=== PATIENT | female | born 1970 | race Caucasian/White ===

== ENCOUNTER 2025-03-06 17:34 | Inpatient (IN) | payer OTHER ==
[2025-03-06 18:19] LABS: Absolute Lymphocytes (CBC) 1.4 K/uL (0.7-4.9); Hematocrit 34.8 % (36.0-45.0); Hemoglobin 11.3 g/dL (12.0-15.0); MCH 26.1 pg (27.0-35.0); MCHC 32.4 g/dL (32.0-36.0); MCV 80.7 fL (80-100); MPV 7.8 fL (7.6-11.3); Nucleated RBC Absolute Count 0.0 (0-0); Nucleated Red Blood Cells % 0.0 % (0-0); RBC Red Blood Cell Count 4.32 M/uL (3.86-4.86); White Blood Count 16.40 thou/uL (4.3-10.9)
[2025-03-06 18:28] LABS: PT Prothrombin Time 14.0 SECONDS (10-13.0); PTT, Activated Partial Thromb 32.6 SECONDS (27.2-37.4); Protime INR 1.25
[2025-03-06] MEDS ORDERED: KETOROLAC 30 MG/ML INJ ONE (18:39)
[2025-03-06 18:40] LABS: Sqamous Epithelial None Seen /HPF (None Seen); Urine Crystals Unidentified Moderate /HPF (None Seen); Urine Culture Reflex Order REFLEXED; Urine Microscopic Reflex YN ORDER UMIC; Urine WBC Clump Many /HPF (None Seen)
[2025-03-06] MEDS ORDERED: NA CHLORIDE 0.9% 2,000 ML ONE (18:40)
[2025-03-06] MEDS ORDERED: CEFTRIAXONE 1000 MG/VIAL ONE (18:40)
[2025-03-06 18:41] LABS: ALT/SGPT 19.0 U/L (13-56); AST/SGOT 16.0 U/L (15-37); Albumin 2.6 g/dL (3.4-5.0); Albumin/Globulin Ratio 0.8 (1.1-1.8); Alkaline Phosphatase 81.0 U/L (45-117); Anion Gap 9.2 mEq/L (5.0-15.0); BUN Blood Urea Nitrogen 23.0 mg/dL (7-18); Globulin 3.4 g/dL (2.3-3.5); Glucose Level 87.0 mg/dL (74-106); Potassium 3.2 mEq/L (3.5-5.1)
[2025-03-06] MEDS ORDERED: POTASSIUM CL SA 10 MEQ TAB PO ONE (19:39)
--- NOTE | 2025-03-06 19:46 | RAD REPORT ---
EXAMINATION: CT Abdomen Pelvis W Contrast CLINICAL INDICATION: Female, 54 years old. ABD PAIN TECHNIQUE: CT abdomen and pelvis was performed, after the administration of IV contrast, as per [facility] protocol. Axial, sagittal and coronal reconstructions were obtained. One or more of the following dose reduction techniques were used: Automated exposure control, adjustment of the mA and k V according to patient size, and iterative reconstruction. Unless otherwise specified, incidental findings do not require dedicated imaging follow-up. COMPARISON: No prior exam. FINDINGS: LOWER CHEST: The visualized lung bases are clear. LIVER: Normal in size and contour. No focal lesion. BILIARY SYSTEM: Status post cholecystectomy. SPLEEN: Normal size. No focal lesion. PANCREAS: No mass, ductal dilation, or rom-pancreatic fluid. ADRENALS: Normal; no mass. KIDNEYS: Normal size and contour. Mild bilateral hydroureteronephrosis. Mild perinephric fat strandin g more so on the left. Pericystic fat stranding extends along the distal left ureter, with trace layering fluid along the left more than right paracolic gutters. URINARY BLADDER: Diffuse wall thickening, pericystic fat stranding, and urothelial hyperenhancement. Bladder is decompressed with Lacey catheter in place which somewhat limits evaluation. Subjective focal wall thickening at the level of the protruding tip of the catheter right of midline. GASTROINTESTINAL TRACT: Moderate to marked distal colonic disease is distention and steatorrhea. Shyam ed caliber attenuation of the distal sigmoid to rectum with smooth transition. Mild wall thickening of the rectosigmoid junction and the upper rectum, with mild presacral fat stranding. No evidence of free air, significant intra-abdominal free fluid, bowel obstruction or abscess. APPENDIX: Normal appendix. LYMPH NODES: No lymphadenopathy. MUSCULOSKELETAL: No acute or suspicious osseous abnormality. ADDITIONAL FINDINGS: None. IMPRESSION: Suspected sequelae of acute cystitis, although decompression of the bladder limits evaluation. Fat st randing extends along the left distal periureteric segment, with trace fluid along the left more than right paracolic gutters. Mild hydroureteronephrosis and mild perinephric fat stranding. Findings raise concern for ascending infection/pyelonephritis. Please correlate clinically. Distal colonic gaseous distention with transition to nondistended distal sigmoid and upper rectum, fi ndings which may reflect mild colonic ileus. Mild wall thickening of the rectosigmoid junction and upper rectum with presacral space fat stranding, concerning for proctocolitis.
--- NOTE | 2025-03-06 19:53 | ER ---
Nurse's Notes [facility] Name: Francoise Bonilla Age: 54 yrs Sex: Female : 1970 Arrival Date: 03/06/2025 Time: 17:34 Bed 20 Private MD: Diagnosis: Pyelonephritis acute;Severe sepsis without septic shock;Ileus, unspecified;Proctocolitis Presentation: 03/06 17:40 Chief complaint: EMS states: TONED OUT DUE TO PATIENT NOT FEELING WELL. LONG-TERM cm10 STAFF REPORTS THAT PATIENT HAS HAD "MILKY" URINE IN HER CATHETER AND HAS HAD "MUCOUS" IN HER BM. PT REPORTS THAT SHE FEELS WEAK AND HAS A HEADACHE. EMS REPORTS THAT PT WAS HYPOTENSIVE 76/46 WHEN THEY ARRIVED, BP IMPROVED AFTER FLUIDS. Coronavirus screen: Client denies travel out of the [place] in the last 14 days. Ebola Screen: Patient denies travel to an Ebola-affected area in the 21 days before illness onset. Risk Assessment: Do you want to hurt yourself or someone else? Patient reports no desire to harm self or others. Onset of symptoms was March 06, 2025. Care prior to arrival: Medication(s) given: zofran 4 mg, LR 500mL IV initiated. 20 GA, in the left antecubital area, Glucose check: 96. 17:40 Method Of Arrival: EMS: [facility] 17:40 Acuity: LUIS 3 cm10 17:45 Initial Sepsis Screen: Does the patient meet any 2 criteria? HR > 90 bpm. Does the me1 patient have a suspected source of infection? No. Patient's initial sepsis screen is negative. 17:46 Transition of care: MS. LINDQUIST. 10 Triage Assessment: 17:46 General: Appears in no apparent distress. comfortable, Behavior is calm, cooperative. cm10 Neuro: No deficits noted. Level of Consciousness is awake, alert, obeys commands, Oriented to person, place, time, situation, Appropriate for age. Respiratory: No deficits noted. Airway is patent Respiratory effort is even, unlabored, Respiratory pattern is regular, symmetrical. 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 - Infectious Disease History:: Denies. - Social history:: Smoking status: unknown. Screenin:49 [facility] ED Fall Risk Assessment (Adult) History of falling in the last 3 months, me1 including since admission No falls in past 3 months (0 pts) Confusion or Disorientation No (0 pts) Intoxicated or Sedated No (0 pts) Impaired Gait Yes (1 pt) Mobility Assist Device Used Yes (1 pt) Altered Elimination Yes (1 pt) Score/Fall Risk Level 0 - 2 = Low Risk Maintained a safe environment, Provided non-skid footwear, Hourly rounding (assess needs \\T\\ fall precautionary measures) done. Abuse screen: Denies threats or abuse. Nutritional screening: No deficits noted. Tuberculosis screening: No symptoms or risk factors identified. Assessment: 17:49 General: Appears in no apparent distress. Behavior is calm, cooperative, appropriate me1 for age, Reports TONED OUT DUE TO PATIENT NOT FEELING WELL. LONG-TERM STAFF REPORTS THAT PATIENT HAS HAD "MILKY" URINE IN HER CATHETER AND HAS HAD "MUCOUS" IN HER BM. PT REPORTS THAT SHE FEELS WEAK AND HAS A HEADACHE. EMS REPORTS THAT PT WAS HYPOTENSIVE 76/46 WHEN THEY ARRIVED, BP IMPROVED AFTER FLUIDS. Pain: Denies pain. Neuro: Level of Consciousness is awake, alert, obeys commands, Oriented to person, place, time, situation, Appropriate for age. Neuro: Reports headache. Cardiovascular: Patient's skin is warm and dry. Respiratory: Airway is patent Respiratory effort is even, unlabored, Respiratory pattern is regular, symmetrical. GI: Reports mucous in stools. : Diaz in place to gravity drainage diaz changed today by NH, urine in drainage bag is dark and cloudy. EENT: No signs and/or symptoms were reported regarding the EENT system. Derm: Skin is intact, is healthy with good turgor, Skin is normal. 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 Vital Signs: 17:45 BP 113 / 53; Pulse 100; Resp 18; Temp 98.2; Pulse Ox 95% on R/A; Weight 69.4 kg; Height me1 5 ft. 3 in. ; 18:00 BP 109 / 69; Pulse 100; Resp 15; Pulse Ox 94% ; me1 19:00 BP 134 / 73; Pulse 107; Resp 14; Pulse Ox 96% ; me1 20:00 BP 126 / 70; Pulse 109; Resp 12; Pulse Ox 94% on R/A; me1 21:00 BP 124 / 69; Pulse 108; Resp 15; Pulse Ox 94% ; me1 17:45 Body Mass Index 27.10 (69.40 kg, 160.02 cm) me1 ED Course: 17:40 Patient arrived in ED. cm10 17:41 Stella Oakley FNP-C is [facility]. kb 17:41 Tremayne Maria MD is Attending Physician. kb 17:42 Triage completed. cm10 17:44 Gena Greenberg, RN is Primary Nurse. me1 17:45 Arm band placed on right wrist. Patient placed in an exam room, on a stretcher. cm10 17:49 Patient has correct armband on for positive identification. Placed in gown. Bed in low me1 position. Call light in reach. Side rails up X2. Provided Education on: POC. Verbalized understanding.. Client placed on continuous cardiac and pulse oximetry monitoring. NIBP monitoring applied. school bus monitor on. Pulse ox on. NIBP on. 17:49 No provider procedures requiring assistance completed. Initial lab(s) drawn, by ct, [facility] sent to lab. Inserted saline lock: 20 gauge in left antecubital area, using aseptic technique. 17:50 Radiology exam delayed due to lab results not completed at this time. (BUN/Creatinine) jc4 IV insertion attempt and/or patient not having appropriate IV at this time. 18:05 First set of blood cultures drawn by ct. me1 18:12 Blood Culture Adult (2) Sent. me1 18:12 CBC with Diff Sent. me1 18:12 CMP Sent. me1 18:12 Lactate w/ 2H reflex if indic. Sent. me1 18:12 Protime (+inr) Sent. me1 18:12 Ptt, Activated Sent. me1 18:14 Second set of blood cultures drawn by ct. me1 18:35 EKG done, by ED staff, reviewed by Stella KING. me1 19:00 CT Abd/Pelvis - IV Contrast Only In Process Unspecified. EDMS 19:53 Sudeep Burleson MD is Hospitalizing Provider. kb 20:28 Patient admitted, IV remains in place. me1 Administered Medications: 18:41 Drug: NS 0.9% IV (30 ml/kg) 30 ml/kg IV at bolus once; Sepsis Protocol; to be given as me1 a bolus over 90 minutes Route: IV; Rate: bolus; Site: left antecubital; 21:03 Follow up: Response: No adverse reaction; IV Status: Completed infusion; IV Intake: me1 2082ml 18:42 Drug: Rocephin IV 1 grams IV at calculated rate once; Given slow IV push per pharmacy me1 instructions Route: IV; Rate: calculated rate; Site: left antecubital; 19:15 Follow up: Response: No adverse reaction; IV Status: Completed infusion me1 18:42 Drug: Ketorolac IVP 15 mg IVP once Route: IVP; Site: left antecubital; me1 19:06 Follow up: Response: No adverse reaction; Pain is unchanged, physician notified me1 19:41 Drug: Potassium Chloride PO 20 mEq PO once Route: PO; me1 20:15 Follow up: Response: No adverse reaction me1 20:15 Drug: metroNIDAZOLE IVPB 500 mg 100 ml IVPB at 200 ml/hr once over 30 mins Volume: 100 me1 ml; Route: IVPB; Rate: 200 ml/hr; Infused Over: 30 mins; Site: left antecubital; 20:42 Follow up: Response: No adverse reaction; IV Status: Completed infusion me1 20:15 Drug: fentaNYL (PF) IVP 25 mcg IVP once Route: IVP; Site: left antecubital; me1 20:42 Follow up: Response: No adverse reaction; Pain is decreased me1 20:15 Drug: Ondansetron IVP 4 mg IVP once; over 2 minutes Route: IVP; Site: left antecubital; me1 20:42 Follow up: Response: No adverse reaction; Nausea is decreased me1 20:43 Drug: Ciprofloxacin IVPB 400 mg 200 ml IVPB once over 60 mins Volume: 200 ml; Route: me1 IVPB; Infused Over: 60 mins; Site: left antecubital; 21:02 Follow up: IV Status: Infusion continued upon admission me1 Medication: 17:49 VIS not applicable for this client. me1 Intake: 21:03 IV: 2082ml; Total: 2082ml. me1 Outcome: 19:53 Decision to Hospitalize by Provider. kb 20:28 Admitted to Tele accompanied by tech, via stretcher, room 428, with chart, Report me1 called to tubed up, receipt confirmed with Anna. 20:28 Condition: stable 20:28 Instructed on the need for admit, 21:21 Patient left the ED. ct1 Signatures: Dispatcher [employer] EDTX Stella Oakley, OG-Harjit FOLEY-Kayleen Orozco RN RN 10 Gena Greenberg RN RN ct1 Ravinder Crockett jc4 Corrections: (The following items were deleted from the chart) 17:43 17:40 Chief complaint: EMS states: TONED OUT DUE TO PATIENT NOT FEELING WELL. NURSING 10 HOME STAFF REPORTS THAT PATIENT HAS HAD "MILKY" URINE IN HER CATHETER AND HAS HAD "MUCOUS" IN HER BM. PT REPORTS THAT SHE FEELS WEAK AND HAS A HEADACHE. [facility] 17:45 17:43 PMHx: Congestive heart failure; [place] [id number] 17:49 17:40 Chief complaint: EMS states: TONED OUT DUE TO PATIENT NOT FEELING WELL. NURSING ct1 HOME STAFF REPORTS THAT PATIENT HAS HAD "MILKY" URINE IN HER CATHETER AND HAS HAD "MUCOUS" IN HER BM. PT REPORTS THAT SHE FEELS WEAK AND HAS A HEADACHE. EMS REPORTS THAT PT WAS HYPOTENSIVE 76/46 WHEN THEY ARRIVED, BP IMPROVED AFTER FLUIDS. 10
--- NOTE | 2025-03-06 19:54 | EDPHYS ---
Physician Documentation [facility] Name: Francoise Bonilla Age: 54 yrs Sex: Female : 1970 Arrival Date: 03/06/2025 Time: 17:34 Bed 20 Private MD: ED Physician Tremayne Maria HPI: 03/06 18:51 This 54 yrs old Female presents to ER via EMS with complaints of General Weakness. kb 18:53 Pt is a 54 year old female who presents for generalized malaise, milky urine and mucus kb in her stool for 2-3 days. Denies fever. EMS reports pt was hypotensive upon their arrival, improved after fluid administration. . 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 - Infectious Disease History:: Denies. - Social history:: Smoking status: unknown. ROS: 18:39 Constitutional: As per HPI kb Exam: 18:39 Constitutional: This is a well developed, well nourished patient who is awake, alert, kb and in no acute distress. Head/Face: Normocephalic, atraumatic. ENT: Moist Mucous membranes Cardiovascular: Regular rate Respiratory: Respirations even and unlabored. No increased work of breathing. Talking in full sentences 18:39 ECG was reviewed by the Attending Physician. 18:39 Abdomen/GI: Inspection: abdomen appears normal, Bowel sounds: normal, Palpation: soft, in all quadrants, mild abdominal tenderness, in all quadrants, 18:39 Neuro: Exam negative for acute changes, Orientation: is normal, Vital Signs: 17:45 BP 113 / 53; Pulse 100; Resp 18; Temp 98.2; Pulse Ox 95% on R/A; Weight 69.4 kg; Height me1 5 ft. 3 in. ; 18:00 BP 109 / 69; Pulse 100; Resp 15; Pulse Ox 94% ; me1 19:00 BP 134 / 73; Pulse 107; Resp 14; Pulse Ox 96% ; me1 20:00 BP 126 / 70; Pulse 109; Resp 12; Pulse Ox 94% on R/A; me1 21:00 BP 124 / 69; Pulse 108; Resp 15; Pulse Ox 94% ; me1 17:45 Body Mass Index 27.10 (69.40 kg, 160.02 cm) me1 MDM: 17:41 Medical Screening Exam initiated kb 18:53 Data reviewed: vital signs, nurses notes. kb 18:55 Differential diagnosis: uti, SBO, gastroenteritis, sepsis. Historians other than the kb Patient: EMS: [facility]. 18:58 ED course: Sepsis reevaluation complete. kb 18:59 Consideration of Admission/Observation Patient was admitted/placed on observation. kb Escalation of care including admission/observation considered. Counseling: I had a detailed discussion with the patient and/or guardian regarding the historical points, exam findings, and any diagnostic results supporting the discharge/admit diagnosis, lab results, radiology results, the need for further work-up and treatment in the hospital. 19:52 Management of patient was discussed with the following: Hospitalist: Dr Burleson accepts kb pt for admission. Independent interpretation of the following test(s) in the Emergency Department CT Scan: My interpretation is gaseous distention on CT abd. 03/06 17:46 Order name: Blood Culture Adult (2) 03/06 17:46 Order name: CBC with Diff; Complete Time: 18:29 kb 03/06 17:46 Order name: CMP; Complete Time: 18:56 kb 03/06 17:46 Order name: Lactate w/ 2H reflex if indic.; Complete Time: 18:37 kb 03/06 17:46 Order name: Protime (+inr); Complete Time: 18:29 kb 03/06 17:46 Order name: Ptt, Activated; Complete Time: 18:29 kb 03/06 17:46 Order name: UA Rfx Forrest Cult if indicated; Complete Time: 18:56 kb 03/06 18:48 Order name: Urine Culture EDAK 03/06 20:26 Order name: CBC with Automated Diff EDAK 03/06 20:26 Order name: CBC with Automated Diff EDAK 03/06 20:26 Order name: Comprehensive Metabolic Panel EDAK 03/06 20:26 Order name: Comprehensive Metabolic Panel EDAK 03/06 17:46 Order name: CT Abd/Pelvis - IV Contrast Only; Complete Time: 19:47 kb 03/06 17:46 Order name: EKG; Complete Time: 17:47 kb 03/06 17:46 Order name: Accucheck; Complete Time: 18:42 kb 03/06 17:46 Order name: Cardiac monitoring; Complete Time: 18:35 kb 03/06 17:46 Order name: EKG - Nurse/Tech; Complete Time: 18:35 kb 03/06 17:46 Order name: IV Saline Lock - Large Bore; Complete Time: 17:52 kb 03/06 17:46 Order name: Labs collected and sent; Complete Time: 18:12 kb 03/06 17:46 Order name: O2 Per Protocol; Complete Time: 17:52 kb 03/06 17:46 Order name: O2 Sat Monitoring; Complete Time: 17:53 kb 03/06 17:46 Order name: Vital Signs; Complete Time: 17:53 kb EC:39 Rate is 104 beats/min. Rhythm is regular. QRS [place] is Normal. LA interval is normal at kb 158 msec. QRS interval is normal at 112 msec. QT interval is normal at 431 msec. Administered Medications: 18:41 Drug: NS 0.9% IV (30 ml/kg) 30 ml/kg IV at bolus once; Sepsis Protocol; to be given as me1 a bolus over 90 minutes Route: IV; Rate: bolus; Site: left antecubital; 21:03 Follow up: Response: No adverse reaction; IV Status: Completed infusion; IV Intake: me1 2ml 18:42 Drug: Rocephin IV 1 grams IV at calculated rate once; Given slow IV push per pharmacy me1 instructions Route: IV; Rate: calculated rate; Site: left antecubital; 19:15 Follow up: Response: No adverse reaction; IV Status: Completed infusion me1 18:42 Drug: Ketorolac IVP 15 mg IVP once Route: IVP; Site: left antecubital; me1 19:06 Follow up: Response: No adverse reaction; Pain is unchanged, physician notified me1 19:41 Drug: Potassium Chloride PO 20 mEq PO once Route: PO; me1 20:15 Follow up: Response: No adverse reaction me1 20:15 Drug: metroNIDAZOLE IVPB 500 mg 100 ml IVPB at 200 ml/hr once over 30 mins Volume: 100 me1 ml; Route: IVPB; Rate: 200 ml/hr; Infused Over: 30 mins; Site: left antecubital; 20:42 Follow up: Response: No adverse reaction; IV Status: Completed infusion me1 20:15 Drug: fentaNYL (PF) IVP 25 mcg IVP once Route: IVP; Site: left antecubital; me1 20:42 Follow up: Response: No adverse reaction; Pain is decreased me1 20:15 Drug: Ondansetron IVP 4 mg IVP once; over 2 minutes Route: IVP; Site: left antecubital; me1 20:42 Follow up: Response: No adverse reaction; Nausea is decreased me1 20:43 Drug: Ciprofloxacin IVPB 400 mg 200 ml IVPB once over 60 mins Volume: 200 ml; Route: me1 IVPB; Infused Over: 60 mins; Site: left antecubital; 21:02 Follow up: IV Status: Infusion continued upon admission me1 Disposition Summary: 03/06/25 19:53 Hospitalization Ordered Notes: Hospitalization Status: Inpatient Admission kb Provider: Sudeep Burleson Location: Telemetry/[facility] (Inpatient) kb Condition: Stable kb Problem: new kb Symptoms: are unchanged kb Bed/Room Type: Standard Room Assignment: 428(03/06/25 20:04) Diagnosis - Pyelonephritis acute kb - Severe sepsis without septic shock kb - Ileus, unspecified kb - Proctocolitis kb Forms: - Medication Reconciliation Form kb - SBAR form kb - Leadership Thank You Letter kb Addendum: 03/09/2025 07:03 Co-signature as Attending Physician, Tremayne Maria MD I reviewed the patient's care r n provided by the Advanced Practice Provider and agree with the diagnosis and treatment plan. Signatures: Dispatcher [employer] Stella Da Silva, OG-C LANDFILL GAS COLLECTION OPERATOR-Marianna Ramos RN Tremayne Estrada MD MD rn Martinez, Clarissa, RN RN 10 Gena Greenberg RN RN me1 Corrections: (The following items were deleted from the chart) 03/06 17:45 17:43 PMHx: Congestive heart failure; cm10 cm10 20:04 19:53 kb
[2025-03-06] MEDS ORDERED: FENTANYL CITR 100 MCG/2 ML ONE (19:57)
[2025-03-06] MEDS ORDERED: ONDANSETRON 4 MG/2 ML VIAL ONE (20:07)
[2025-03-06] MEDS ORDERED: CIPROFLOXACIN 400mg IV 400 MG/200 ML BAG IV ONE (20:07)
[2025-03-06] MEDS ORDERED: METRONIDAZOLE 500mg IVPB 500 MG/100 ML BAG IV ONE (20:07)
--- NOTE | 2025-03-06 20:25 | P.HP ---
Certification for Inpatient Patient admitted to: Inpatient With expected LOS: >2 Midnights Practitioner: I am a practitioner with admitting privileges, knowledge of patient current condition, hospital course, and medical plan of care. Services: Services provided to patient in accordance with Admission requirements found in Title 42 Section 412.3 of the Code of Federal Regulations Patient History Date of Service: 03/07/25 Reason for admission: Abdominal Pain History of Present Illness: 54 yrs old Female with past medical history of hypertension CAD, history of NV, CVA, history of small bowel obstruction, was brought to ER with generalized weakness and malaise which has been going on for the last 2 days and is progressively getting worse and was brought to ER. Patient also complains of generalized malaise, milky urine and mucus in her stool for 2-3 days. Denies fever. EMS reports pt was hypotensive upon their arrival, improved after fluid administration. . The patient was assessed in the ER and is admitted for further management of pyelonephritis/proctocolitis Allergies Penicillins Allergy (Verified 03/06/25 21:46) Itching/Hives/Rash Home medications list reviewed: Yes Home Medications: Aspirin 81 mg PO DAILY 03/06/25 Atorvastatin Calcium 40 mg PO BEDTIME 03/06/25 Baclofen 20 mg PO Q8HP PRN 03/06/25 Clopidogrel Bisulfate [Plavix] 75 mg PO DAILY 03/06/25 Duloxetine HCl 30 mg PO DAILY 03/06/25 Gabapentin 800 mg PO TID 03/06/25 Isosorbide Mononitrate [Isosorbide Mononitrate ER] 30 mg PO DAILY 03/06/25 Lacosamide [Vimpat] 50 mg PO BID 03/06/25 Loratadine [Claritin] 10 mg PO DAILY 03/06/25 Midodrine HCl 10 mg PO BID 03/06/25 Montelukast [Singulair] 10 mg PO DAILY 03/06/25 Multivitamin 1 each PO DAILY 03/06/25 Naloxone HCl 4 mg NS DAILYPRN PRN 03/06/25 Ondansetron [Zofran] 8 mg PO TIDP PRN 03/06/25 Oxycodone HCl/Acetaminophen [Oxycodone-Acetaminophen 10-325] 1 tab PO TIDP PRN 03/06/25 Pantoprazole [Protonix Tab] 40 mg PO DAILY 03/06/25 Trazodone [Desyrel] 150 mg PO BEDTIME 03/06/25 - Past Medical/Surgical History Past Medical History: Reviewed- Non-Contributory -: CAD, hypertension, CVA Past Surgical History: Reviewed- Non-Contributory - Family History Family History: Reviewed- Non-Contributory - Social History Smoking Status: Never smoker Review of Systems 10-point ROS is otherwise unremarkable Physical Examination - Vital Signs Temperature: 98.2 F Blood Pressure: 109/69 Pulse: 100 Respirations: 18 Pulse Ox (%): 94 - Physical Exam General: Alert, Oriented x3, Mild distress HEENT: Atraumatic, Normocephalic Neck: Supple Respiratory: Clear to auscultation bilaterally, Normal air movement Cardiovascular: Regular rate/rhythm, Normal S1 S2 Capillary refill: <2 Seconds Gastrointestinal: Soft and benign, W/out hepatosplenomegaly, Tenderness Musculoskeletal: No clubbing Integumentary: No rashes Neurological: Other (Alert awake nonfocal) Lymphatics: No axilla or inguinal lymphadenopathy - Studies Laboratory Data (last 24 hrs) 03/06/25 03/06/25 03/06/25 18:05 18:05 18:05 WBC 16.40 H Hgb 11.3 L Hct 34.8 L Plt Count 368 PT 14.0 H INR 1.25 APTT 32.6 Sodium 136 Potassium 3.2 L BUN 23 H Creatinine 0.81 Glucose 87 Total Bilirubin 0.7 AST 16 ALT 19 Alkaline Phosphatase 81 Assessment and Plan - Plan Pyelonephritis UTI Proctocolitis Started on IV antibiotic Will obtain cultures Pain control: CT findings noted Change antibiotic as per sensitivity Hypertension Antihypertensives titrated Continue home medications and titrate as needed Hyperlipidemia Continue statin Hypokalemia Replace electrolytes and monitor closely on telemetry GI/DVT prophylaxis Advanced directive full code Discharge Plan: Home Plan to discharge in: 48 Hours - Advance Directives Does patient have a Living Will: No Does patient have a Durable POA for Healthcare: No - Code Status/Comfort Care Code Status: Full Code Time Spent Managing Pts Care (In Minutes): 48
[2025-03-06] MEDS: NA CHLORIDE 0.9% 1,000 ML IV SCH (22:57)
[2025-03-06] MEDS: ACETAMINOPHEN 325 MG TABLET PO PRN (22:57)
[2025-03-06] MEDS: TRAZODONE 50 MG TABLET ONE (23:33)
[2025-03-06] MEDS: Oxycodone HCl/Acetaminophen 5/325 MG TAB PO PRN (23:34)
[2025-03-07] MEDS ORDERED: PIPER TAZO 3.375 GM in NA CHLORIDE 0.9% 100 ML IV SCH (01:00)
[2025-03-07] MEDS: AZTREONAM 1 GM in NA CHLORIDE 0.9% 100 ML IV SCH (01:20)
[2025-03-07] MEDS: METRONIDAZOLE 500mg IVPB 500 MG/100 ML BAG IV SCH (01:23)
[2025-03-07 03:39] VITALS: BMI 26.9
[2025-03-07] MEDS: MIDODRINE HCL 5 MG TABLET ONE (04:56)
[2025-03-07] MEDS: MIDODRINE HCL 5 MG TABLET PO ONE (04:59)
[2025-03-07 06:51] LABS: Absolute Lymphocytes (CBC) 1.7 K/uL (0.7-4.9); Hematocrit 30.2 % (36.0-45.0); Hemoglobin 9.8 g/dL (12.0-15.0); MCH 26.2 pg (27.0-35.0); MCHC 32.3 g/dL (32.0-36.0); MCV 81.0 fL (80-100); MPV 7.9 fL (7.6-11.3); Nucleated RBC Absolute Count 0.0 (0-0); Nucleated Red Blood Cells % 0.0 % (0-0); RBC Red Blood Cell Count 3.73 M/uL (3.86-4.86); White Blood Count 13.00 thou/uL (4.3-10.9)
[2025-03-07 07:13] LABS: ALT/SGPT 15.0 U/L (13-56); AST/SGOT 13.0 U/L (15-37); Albumin 2.2 g/dL (3.4-5.0); Albumin/Globulin Ratio 0.7 (1.1-1.8); Alkaline Phosphatase 71.0 U/L (45-117); Anion Gap 8.1 mEq/L (5.0-15.0); BUN Blood Urea Nitrogen 19.0 mg/dL (7-18); Globulin 3.2 g/dL (2.3-3.5); Glucose Level 111.0 mg/dL (74-106); Potassium 3.1 mEq/L (3.5-5.1)
[2025-03-07] MEDS: POTASSIUM CL SA 10 MEQ TAB PO ONE ×2 (07:38→16:05)
[2025-03-07] MEDS ORDERED: NALOXONE HCL 2 MG/2 ML VIAL IM PRN (11:30)
[2025-03-07] MEDS: FENTANYL 50 MCG/PATCH TD SCH (11:32)
--- NOTE | 2025-03-07 13:30 | P.PN ---
Date of Service: 03/07/25 Subjective: Feeling better today. No acute complaints. Denies fevers and chills. Endorses some minor back pain. Rates his pain at a 7 out of 10. Review of Systems 10-point ROS is otherwise unremarkable Physical Examination - Vital Signs Temperature: 98.2 F Blood Pressure: 109/69 Pulse: 100 Respirations: 18 Pulse Ox (%): 94 - Physical Exam General: Alert, Oriented x3, Mild distress HEENT: Atraumatic, Normocephalic Neck: Supple Respiratory: Clear to auscultation bilaterally, Normal air movement Cardiovascular: Regular rate/rhythm, Normal S1 S2 Capillary refill: <2 Seconds Gastrointestinal: Soft and benign, W/out hepatosplenomegaly, Tenderness Musculoskeletal: No clubbing Integumentary: No rashes Neurological: Other (Alert awake nonfocal) Lymphatics: No axilla or inguinal lymphadenopathy - Studies Laboratory Data (last 24 hrs) 03/06/25 03/06/25 03/06/25 18:05 18:05 18:05 WBC 16.40 H Hgb 11.3 L Hct 34.8 L Plt Count 368 PT 14.0 H INR 1.25 APTT 32.6 Sodium 136 Potassium 3.2 L BUN 23 H Creatinine 0.81 Glucose 87 Total Bilirubin 0.7 AST 16 ALT 19 Alkaline Phosphatase 81 Assessment and Plan Pyelonephritis UTI Proctocolitis Hypotension Anemia Hypokalemia 03/07 -Continue aztreonam, Flagyl; urine culture and blood cultures pending - Pain control with Percocet, fentanyl patch, Cymbalta - Restart midodrine - Continue gabapentin (monitor for sedation) - Hemoglobin stable at 9.8 - Replace potassium and check magnesium level - Continue aspirin, Plavix, statin - Trazodone at bedtime Started on IV antibiotic Will obtain cultures Pain control: CT findings noted Change antibiotic as per sensitivity Hypertension Antihypertensives titrated Continue home medications and titrate as needed Hyperlipidemia Continue statin Hypokalemia Replace electrolytes and monitor closely on telemetry GI/DVT prophylaxis Advanced directive full code Discharge Plan: Home Plan to discharge in: 48 Hours - Advance Directives Does patient have a Living Will: No Does patient have a Durable POA for Healthcare: No - Code Status/Comfort Care Code Status: Full Code
[2025-03-07] MEDS: GABAPENTIN 400 MG CAP PO SCH (13:36)
[2025-03-07] MEDS: MIDODRINE HCL 5 MG TABLET PO SCH (16:06)
[2025-03-07] MEDS: ATORVASTATIN 40 MG TAB PO SCH (20:53)
[2025-03-07] MEDS: BACLOFEN 10 MG TAB PO PRN (20:53)
[2025-03-07] MEDS: TRAZODONE 150 MG TAB PO SCH (20:53)
[2025-03-07] MEDS: LACOSAMIDE 50 MG TABLET PO SCH (20:53)
[2025-03-07] MEDS ORDERED: TRAZODONE 150 MG TAB PO SCH (21:00)
[2025-03-08] MEDS: MORPHINE 2 MG/ML SYR IM ONE (00:05)
[2025-03-08 05:23] LABS: Anion Gap 6.8 mEq/L (5.0-15.0); BUN Blood Urea Nitrogen 9 mg/dL (7-18); Glucose Level 125 mg/dL (74-106); Magnesium 1.7 mg/dL (1.6-2.4); Potassium 3.8 mEq/L (3.5-5.1)
[2025-03-08] MEDS: ASPIRIN EC 81 MG TAB PO SCH (07:53)
[2025-03-08] MEDS: ISOSORBIDE MONO SR 30 MG TAB PO SCH (07:54)
[2025-03-08] MEDS: CLOPIDOGREL 75 MG TABLET PO SCH (07:59)
[2025-03-08] MEDS: DULOXETINE 30 MG CAP PO SCH (07:59)
--- NOTE | 2025-03-08 10:18 | P.PN ---
Subjective Date of Service: 03/08/25 Chief Complaint: Abdominal Pain Subjective: Improving (Patient still has some abdominal distention) Physical Examination - Vital Signs Temperature: 98.2 F Blood Pressure: 94/53 Pulse: 95 Respirations: 16 Pulse Ox (%): 98 - Physical Exam General: Cooperative, Acute distress HEENT: Atraumatic, Normocephalic Respiratory: Clear to auscultation bilaterally, Normal air movement Cardiovascular: Normal pulses, Regular rate/rhythm, Normal S1 S2, Edema Gastrointestinal: Distended Neurological: Normal speech - Studies Microbiology Data (last 24 hrs): 03/06/25 18:25 Clean Catch U[facility] Count - Final Assessment And Plan - Plan Assessment Patient is a 54-year-old female paraplegic who was admitted to the hospital generalized weakness and malaise. Patient has been found to have UTI/pyelonephritis. She is responding to empiric antibiotics. Cultures are pending. Additional workup also revealed evidence of proctocolitis for which she is on Cipro and Flagyl. Sepsis Pyelonephritis Proctocolitis Paraplegic CVA Coronary artery disease status post SD Hypertension Plan: Patient has penicillin allergy Continue aztreonam and Flagyl for both treatment of pyelonephritis and proctocolitis Follow blood and urine cultures Pain control Abdominal x-ray to rule out ileus/small bowel obstruction. Patient has a history of small bowel obstruction Follow lactic acid Electrolyte replacement as needed Continue routine home medications including antihypertensives DVT and GI prophylaxis
[2025-03-08 10:26] LABS: Absolute Lymphocytes (CBC) 1.6 K/uL (0.7-4.9); Hematocrit 27.4 % (36.0-45.0); Hemoglobin 9.0 g/dL (12.0-15.0); MCH 26.6 pg (27.0-35.0); MCHC 32.7 g/dL (32.0-36.0); MCV 81.3 fL (80-100); MPV 7.7 fL (7.6-11.3); Nucleated RBC Absolute Count 0.0 (0-0); Nucleated Red Blood Cells % 0.1 % (0-0); RBC Red Blood Cell Count 3.37 M/uL (3.86-4.86); White Blood Count 7.00 thou/uL (4.3-10.9)
[2025-03-08 11:27] VITALS: O2SAT 95
[2025-03-08] MEDS: POTASS/SODIUM PHOSPHATE 1 PKT POWD.PACK PO SCH (12:16)
[2025-03-08] MEDS: POTASSIUM CL SA 10 MEQ TAB PO ONE (12:16)
[2025-03-08] MEDS: MAGNESIUM SULFATE 1 gm IVPB 1 GM/100 ML BAG IV ONE (12:17)
--- NOTE | 2025-03-08 17:13 | RAD REPORT ---
EXAM: XR Abdomen 1 View (KUB) HISTORY: [facility] abdominal distention COMPARISON: 03/06/2025 CT abdomen and pelvis FINDINGS: Single view of the abdomen shows a nonspecific, nonobstructive bowel gas pattern. Moderate gaseous distention throughout the large bowel. No suspicious calcifications are seen. The bones are unremarkable. IMPRESSION: Moderate gaseous distention throughout the large bowel.
[2025-03-08] MEDS: JUVEN PACKET PO SCH (21:00)
[2025-03-09 05:08] LABS: Anion Gap 5.9 mEq/L (5.0-15.0); BUN Blood Urea Nitrogen 8 mg/dL (7-18); Glucose Level 86 mg/dL (74-106); Magnesium 1.7 mg/dL (1.6-2.4); Potassium 3.9 mEq/L (3.5-5.1)
[2025-03-09] MEDS: SIMETHICONE 80 MG CHEWABLE TAB PO SCH (09:00)
[2025-03-09] MEDS: POTASSIUM CL SA 10 MEQ TAB PO ONE (09:06)
[2025-03-09] MEDS: ISOSORBIDE MONO SR 30 MG TAB PO SCH (09:26)
[2025-03-09] MEDS: CLOPIDOGREL 75 MG TABLET PO SCH (09:27)
[2025-03-09] MEDS: ONDANSETRON 4 MG/2 ML VIAL IV PRN (10:17)
--- NOTE | 2025-03-09 10:54 | P.PN ---
Subjective Date of Service: 03/09/25 Chief Complaint: Abdominal Pain Subjective: Improving (No acute events overnight. Patient is responding well to therapy.) Physical Examination - Vital Signs Temperature: 97.9 F Blood Pressure: 154/78 Pulse: 95 Respirations: 16 Pulse Ox (%): 95 - Physical Exam General: Alert, In no apparent distress, Cooperative HEENT: Atraumatic, Normocephalic Respiratory: Other (Breathing is not labored) Neurological: Normal speech - Studies Microbiology Data (last 24 hrs): 03/06/25 18:25 Clean Catch Urine [place] Count - Final Assessment And Plan - Plan Assessment Patient is a 54-year-old female paraplegic who was admitted to the hospital generalized weakness and malaise. Patient has been found to have UTI/pyelonephritis. She is responding to empiric antibiotics. Cultures are pending. Additional workup also revealed evidence of proctocolitis for which she is on Cipro and Flagyl. Sepsis Pyelonephritis Proctocolitis Paraplegic CVA Coronary artery disease status post SD Hypertension Plan: Patient has penicillin allergy Continue aztreonam and Flagyl for both treatment of pyelonephritis and proctocolitis Urine culture so far showing E. coli. Simethicone for bowel gas Electrolyte replacement as needed Continue routine home medications including antihypertensives Patient can be discharged once we have finalized urine cultures DVT and GI prophylaxis
[2025-03-09] MEDS: MAGNESIUM SULFATE 1 gm IVPB 1 GM/100 ML BAG IV ONE (13:58)
--- NOTE | 2025-03-10 09:29 | P.DS ---
Admission Date: 03/06/25 Discharge Date: 03/10/25 Disposition: ROUTINE DISCHARGE Discharge Condition: GOOD Reason for Admission: Abdominal Pain Hospital Course: Patient is a 54-year-old female paraplegic who was admitted to the hospital generalized weakness and malaise. Patient has been found to have UTI/pyelonephritis. Additional workup also revealed evidence of proctocolitis. She has responded to Cipro and Flagyl. Blood cx remained negative to date, urine cultures yielded thomas-sensitive E. coli. She will be discharged on a 5-day course of levofloxacin and flagyl. Her hospital course has been unremarkable. Vital Signs/Physical Exam: Temp Pulse Resp BP Pulse Ox 97.9 F 91 H 17 144/83 H 92 03/10/25 08:00 03/10/25 08:00 03/10/25 08:46 03/10/25 08:00 03/10/25 08:46 General: Alert, In no apparent distress, Cooperative HEENT: Atraumatic, Normocephalic Respiratory: Clear to auscultation bilaterally, Normal air movement Cardiovascular: Normal pulses, Regular rate/rhythm, Normal S1 S2, Edema Neurological: Normal speech Laboratory Data at Discharge: WBC 7.00 thou/uL (4.3-10.9) 03/08/25 10:14 Hgb 9.0 g/dL (12.0-15.0) L D 03/08/25 10:14 Hct 27.4 % (36.0-45.0) L 03/08/25 10:14 Plt Count 281 thou/uL (152-406) 03/08/25 10:14 PT 14.0 SECONDS (10-13.0) H 03/06/25 18:05 INR 1.25 03/06/25 18:05 APTT 32.6 SECONDS (27.2-37.4) 03/06/25 18:05 Sodium 142 mEq/L (136-145) 03/09/25 04:23 Potassium 3.9 mEq/L (3.5-5.1) 03/09/25 04:23 BUN 8 mg/dL (7-18) 03/09/25 04:23 Creatinine < 0.25 mg/dL (0.55-1.02) L 03/09/25 04:23 Glucose 86 mg/dL (74-106) 03/09/25 04:23 Phosphorus 2.5 mg/dL (2.5-4.9) 03/09/25 04:23 Magnesium 1.7 mg/dL (1.6-2.4) 03/09/25 04:23 Total Bilirubin 0.3 mg/dL (0.2-1.0) 03/07/25 06:30 AST 13 U/L (15-37) L 03/07/25 06:30 ALT 15 U/L (13-56) 03/07/25 06:30 Alkaline Phosphatase 71 U/L (45-117) 03/07/25 06:30 Home Medications: Aspirin 81 mg PO DAILY 03/06/25 Atorvastatin Calcium 40 mg PO BEDTIME 03/06/25 Baclofen 20 mg PO Q8HP PRN 03/06/25 Clopidogrel Bisulfate [Plavix] 75 mg PO DAILY 03/06/25 Duloxetine HCl 30 mg PO DAILY 03/06/25 Gabapentin 800 mg PO TID 03/06/25 Isosorbide Mononitrate [Isosorbide Mononitrate ER] 30 mg PO DAILY 03/06/25 Lacosamide [Vimpat*] 50 mg PO BID 03/06/25 Loratadine [Claritin*] 10 mg PO DAILY 03/06/25 Midodrine HCl 10 mg PO BID 03/06/25 Montelukast [Singulair*] 10 mg PO DAILY 03/06/25 Multivitamin 1 each PO DAILY 03/06/25 Naloxone HCl 4 mg NS DAILYPRN PRN 03/06/25 Ondansetron [Zofran (Odt)*] 8 mg PO TIDP PRN 03/06/25 Oxycodone HCl/Acetaminophen [Oxycodone-Acetaminophen 10-325] 1 tab PO TIDP PRN 03/06/25 Pantoprazole [Protonix Tab*] 40 mg PO DAILY 03/06/25 Trazodone [Desyrel*] 150 mg PO BEDTIME 03/06/25 Oxycodone HCl/Acetaminophen [Percocet 5/325 Tab*] 2 tab PO TIDP PRN tab 03/10/25 levoFLOXacin [Levaquin*] 750 mg PO DAILY #5 tab 03/10/25 metroNIDAZOLE [Flagyl] 500 mg PO Q8H #15 tab 03/10/25 New Medications: metroNIDAZOLE [Flagyl] 500 mg PO Q8H #15 tab levoFLOXacin [Levaquin*] 750 mg PO DAILY #5 tab Followup: Haylie Alegria FNP [Primary Care Provider] -
[2025-03-10 13:34] VITALS: BP 133/77; TEMP 98
== END 2025-03-10 12:30 | disposition home health service (06) | DRG 698 ==
LOC: ER 17:34 → 4TH 20:21
PROVIDERS: ADMIT Family Medicine; ATTEND Internal Medicine
DX: T83.518A Infection and inflammatory reaction due to other urinary catheter, initial encounter (principal); A41.9 Sepsis, unspecified organism; R65.20 Severe sepsis without septic shock; K56.7 Ileus, unspecified; K51.30 Ulcerative (chronic) rectosigmoiditis without complications; N10 Acute pyelonephritis; G82.20 Paraplegia, unspecified; E87.6 Hypokalemia; D64.9 Anemia, unspecified; I10 Essential (primary) hypertension; E78.5 Hyperlipidemia, unspecified; I25.2 Old myocardial infarction; I25.10 Atherosclerotic heart disease of native coronary artery without angina pectoris; B96.20 Unspecified Escherichia coli [E. coli] as the cause of diseases classified elsewhere; Z88.0 Allergy status to penicillin; Z86.73 Personal history of transient ischemic attack (TIA), and cerebral infarction without residual deficits; Z79.82 Long term (current) use of aspirin; Z79.02 Long term (current) use of antithrombotics/antiplatelets; Z79.899 Other long term (current) drug therapy
CPT/HCPCS: 36415; 74018; 74177; 80048; 80053; 81001; 83605; 83735; 83880; 84100; 84132; 85025; 85610; 85730; 87040; 87077; 87086; 87088; 87186; 93005; 96365; 96367; 96375; 99285; J0696; J0744; J1885; J2270; J2405; J3010; J3475; J7030; Q9967

== ENCOUNTER 2025-03-17 15:08 | Emergency (ER) | payer OTHER ==
[2025-03-17] MEDS ORDERED: MORPHINE 4 MG/ML SYR ONE (15:36)
[2025-03-17] MEDS ORDERED: ONDANSETRON 4 MG/2 ML VIAL ONE (15:36)
[2025-03-17 15:38] LABS: Absolute Lymphocytes (CBC) 1.9 K/uL (0.7-4.9); Hematocrit 34.8 % (36.0-45.0); Hemoglobin 11.5 g/dL (12.0-15.0); MCH 26.5 pg (27.0-35.0); MCHC 33.1 g/dL (32.0-36.0); MCV 80.2 fL (80-100); MPV 7.2 fL (7.6-11.3); Nucleated RBC Absolute Count 0.0 (0-0); Nucleated Red Blood Cells % 0.0 % (0-0); RBC Red Blood Cell Count 4.34 M/uL (3.86-4.86); White Blood Count 8.10 thou/uL (4.3-10.9)
[2025-03-17 15:45] LABS: PT Prothrombin Time 12.7 SECONDS (10-13.0); Protime INR 1.13
[2025-03-17 15:46] LABS: Sqamous Epithelial None Seen /HPF (None Seen); Urine Crystals Unidentified Few /HPF (None Seen); Urine Culture Reflex Order NOT NEEDED; Urine Microscopic Reflex YN ORDER UMIC
[2025-03-17 16:03] LABS: ALT/SGPT 31 U/L (13-56); AST/SGOT 18 U/L (15-37); Albumin 2.8 g/dL (3.4-5.0); Albumin/Globulin Ratio 0.8 (1.1-1.8); Alkaline Phosphatase 79 U/L (45-117); Anion Gap 7.8 mEq/L (5.0-15.0); BUN Blood Urea Nitrogen 9 mg/dL (7-18); Globulin 3.6 g/dL (2.3-3.5); Glucose Level 94 mg/dL (74-106); Lipase 19 U/L (13-75); Magnesium 2.1 mg/dL (1.6-2.4); NT PRO-BNP 693 pg/mL (<125); Potassium 3.8 mEq/L (3.5-5.1); Troponin High Sensitivity 9.2 pg/mL (<58.9)
[2025-03-17 16:07] LABS: Bilirubin Indirect, Calculated 0.1 mg/dL (0.2-0.8)
--- NOTE | 2025-03-17 16:25 | RAD REPORT ---
EXAM: Chest Single View HISTORY: 54 years Female CHEST PAIN COMPARISON: No prior exams FINDINGS: LUNGS/PLEURA: The lungs are clear. No pleural effusions or pneumothorax. No pulmonary edema. CARDIAC/MEDIASTINUM: Borderline cardiomegaly. UPPER ABDOMEN: No significant abnormality. BONES: No acute abnormality. LINES/TUBES/OTHER: N/A IMPRESSION: No evidence of acute cardiopulmonary disease.
--- NOTE | 2025-03-17 16:43 | EDPHYS ---
Physician Documentation [facility] Name: Francoise Bonilla Age: 54 yrs Sex: Female : 1970 Arrival Date: 03/17/2025 Time: 15:08 Bed 6 Private MD: ED Physician Torsten Contreras HPI: 03/17 15:22 This 54 yrs old Female presents to ER via Unassigned with complaints of Nausea, Chest sp3 Pressure. 15:22 54-year-old female with history of recent admission for pyelonephritis sepsis and sp3 proctitis who was discharged last week and now presents for nausea and chest pain over the last 24 hours. She denies any shortness of breath, abdominal pain, syncope, fever, or any other signs or symptoms on ROS at this time.. 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 - Infectious Disease History:: Denies. - Social history:: Smoking status: Patient denies any tobacco usage or history of. ROS: 15:22 Constitutional: Negative for fever, chills, and weight loss, Eyes: Negative for injury, sp3 pain, redness, and discharge, ENT: Negative for injury, pain, and discharge, Neck: Negative for injury, pain, and swelling, Respiratory: Negative for shortness of breath, cough, wheezing, and pleuritic chest pain, Back: Negative for injury and pain, MS/Extremity: Negative for injury and deformity, Skin: Negative for injury, rash, and discoloration, Neuro: Negative for headache, weakness, numbness, tingling, and seizure, Psych: Negative for depression, anxiety, suicide ideation, homicidal ideation, and hallucinations, Allergy/Immunology: Negative for hives, rash, and allergies, Endocrine: Negative for neck swelling, polydipsia, polyuria, polyphagia, and marked weight changes, Hematologic/Lymphatic: Negative for swollen nodes, abnormal bleeding, and unusual bruising, 15:22 All other systems are negative, Exam: 15:23 Constitutional: This is a well developed, well nourished patient who is awake, alert, sp3 and in no acute distress. Head/Face: Normocephalic, atraumatic. Eyes: Pupils equal round and reactive to light, extra-ocular motions intact. Lids and lashes normal. Conjunctiva and sclera are non-icteric and not injected. Cornea within normal limits. Periorbital areas with no swelling, redness, or edema. Neck: Trachea midline, no thyromegaly or masses palpated, and no cervical lymphadenopathy. Supple, full range of motion without nuchal rigidity, or vertebral point tenderness. No Meningismus. Chest/axilla: Normal chest wall appearance and motion. Nontender with no deformity. No lesions are appreciated. Cardiovascular: Regular rate and rhythm with a normal S1 and S2. No gallops, murmurs, or rubs. Normal PMI, no JVD. No pulse deficits. Respiratory: Lungs have equal breath sounds bilaterally, clear to auscultation and percussion. No rales, rhonchi or wheezes noted. No increased work of breathing, no retractions or nasal flaring. Abdomen/GI: Soft, non-tender, with normal bowel sounds. No distension or tympany. No guarding or rebound. No evidence of tenderness throughout. Back: No spinal tenderness. No costovertebral tenderness. Full range of motion. Skin: Warm, dry with normal turgor. Normal color with no rashes, no lesions, and no evidence of cellulitis. MS/ Extremity: Pulses equal, no cyanosis. Neurovascular intact. Full, normal range of motion. Neuro: Awake and alert, GCS 15, oriented to person, place, time, and situation. Cranial nerves II-XII grossly intact. Motor strength 5/5 in all extremities. Sensory grossly intact. Cerebellar exam normal. Normal gait. Psych: Awake, alert, with orientation to person, place and time. Behavior, mood, and affect are within normal limits. 15:23 ECG was reviewed by the Attending Physician. EKG demonstrates normal sinus rhythm at 89 bpm with normal intervals, normal QRS, normal axis and nonspecific ST/T changes without evidence of acute ischemia. Isolated Q-wave in lead III noted. Vital Signs: 15:21 BP 155 / 94; Pulse 84; Resp 16; Temp 97.7(O); Pulse Ox 99% ; Weight 79.5 kg; Height 5 cf3 ft. 3 in. ; 15:30 BP 155 / 94; Pulse 81; Resp 15; Pulse Ox 100% ; jl7 16:15 Pain 4/10; jl7 17:45 BP 148 / 89; Pulse 80; Resp 15; Temp 97; Pulse Ox 100% ; jl7 15:21 Body Mass Index 31.05 (79.50 kg, 160.02 cm) cf3 16:15 Pain Scale: Adult jl7 MDM: 15:16 Medical Screening Exam initiated sp3 15:23 Data reviewed: vital signs, nurses notes, old medical records, lab test result(s), EKG, sp3 radiologic studies. ED course: 54-year-old female with chest pressure and nausea. Differential diagnosis includes acute coronary syndrome, gastritis, biliary pathology, pancreatitis, among others. Patient also had recent sepsis infection with a urinary source. We will obtain repeat UA. Disposition pending workup and patient course.. 16:42 ED course: Full workup negative and patient is improved. She now states that she is sp3 also having some vertigo with room spinning type symptoms. We will discharge her on meclizine and tramadol with PCP follow-up. Neurological exam on discharge is normal patient is in no acute distress resting comfortably.. 16:44 ED course: Chest pain started greater than 24 hours ago and single troponin effectively sp3 rules this patient out. Troponin value was also low. No EKG changes. Consider viral illness as well as etiology.. 03/17 15:18 Order name: Basic Metabolic Panel; Complete Time: 16:35 sp3 03/17 15:18 Order name: CBC with Diff; Complete Time: 16:35 sp3 03/17 15:18 Order name: LFT's; Complete Time: 16:35 sp3 03/17 15:18 Order name: Magnesium; Complete Time: 16:35 sp3 03/17 15:18 Order name: NT PRO-BNP; Complete Time: 16:35 sp3 03/17 15:18 Order name: PT-INR; Complete Time: 16:35 sp3 03/17 15:18 Order name: Troponin HS; Complete Time: 16:35 sp3 03/17 15:18 Order name: UA Rfx Forrest Cult if indicated; Complete Time: 16:35 sp3 03/17 15:24 Order name: Lactate w/ 2H reflex if indic.; Complete Time: 16:35 sp3 03/17 15:39 Order name: Lipase; Complete Time: 16:35 EDMS 03/17 15:18 Order name: XRAY Chest (1 view); Complete Time: 16:35 sp3 03/17 15:18 Order name: EKG; Complete Time: 15:19 sp3 03/17 15:18 Order name: Cardiac monitoring; Complete Time: 15:34 sp3 03/17 15:18 Order name: EKG - Nurse/Tech; Complete Time: 15:34 sp3 03/17 15:18 Order name: IV Saline Lock; Complete Time: 15:34 sp3 03/17 15:18 Order name: Labs collected and sent; Complete Time: 15:34 sp3 03/17 15:18 Order name: O2 Per Protocol; Complete Time: 15:34 sp3 03/17 15:18 Order name: O2 Sat Monitoring; Complete Time: 15:34 sp3 Administered Medications: 15:53 Drug: morphine IVP or IV 4 mg IVP once over 4 mins Route: IVP; Infused Over: 4 mins; jl7 Site: left forearm; 16:15 Follow up: Pain 4/10 Adult; Response: No adverse reaction; Pain is decreased; RASS: jl7 Alert and Calm (0) 15:53 Drug: Ondansetron IVP 4 mg IVP once; over 2 minutes Route: IVP; Site: left forearm; jl7 16:15 Follow up: Response: No adverse reaction; Nausea is decreased jl7 Disposition Summary: 03/17/25 16:43 Discharge Ordered Notes: Location: Home sp3 Condition: Stable sp3 Diagnosis - Chest pain, vertigo sp3 Followup: sp3 - With: Private Physician - When: Upon discharge from the Emergency Department - Reason: Continuance of care Discharge Instructions: - Discharge Summary Sheet sp3 - Nonspecific Chest Pain, Adult sp3 - Vertigo, [id number] sp3 Forms: - Medication Reconciliation Form sp3 - Antibiotic Education sp3 - Prescription Opioid Use sp3 - Patient Portal Instructions sp3 - Leadership Thank You Letter sp3 Prescriptions: - Meclizine 25 mg Oral Tablet - take 1 tablet ORAL route every 8 hours As needed; 30 tablet; Refills: 0, sp3 Product Selection Permitted - Tramadol 50 mg Oral Tablet - take 1 tablet ORAL route every 8 hours as needed; 12 tablet; Refills: 0, sp3 Product Selection Permitted Signatures: Dispatcher [employer] Roge Alonzo, RN RN jl7 Torsten Contreras MD MD sp3 Medhat Saleh RN RN cf3 Corrections: (The following items were deleted from the chart) 15:39 15:24 LIPASE+C.LAB.BRZ ordered. EDMS EDMS
--- NOTE | 2025-03-17 16:43 | ER ---
Nurse's Notes [facility] Name: Francoise Bonilla Age: 54 yrs Sex: Female : 1970 Arrival Date: 03/17/2025 Time: 15:08 Bed 6 Private MD: Diagnosis: Chest pain, vertigo Presentation: 03/17 15:21 Chief complaint: EMS states: Chest pressure. Coronavirus screen: Vaccine status: cf3 Patient reports having had a previously documented Covid positive illness. At this time, the client does not indicate any symptoms associated with coronavirus-19. Ebola Screen: No symptoms or risks identified at this time. Initial Sepsis Screen: Does the patient meet any 2 criteria? No. Patient's initial sepsis screen is negative. Does the patient have a suspected source of infection? No. Patient's initial sepsis screen is negative. Risk Assessment: Do you want to hurt yourself or someone else? Patient reports no desire to harm self or others. Onset of symptoms was March 17, 2025 at 09:00. 15:21 Method Of Arrival: EMS: [facility] 3 15:21 Acuity: LUIS 3 cf3 Triage Assessment: 15:24 General: Appears uncomfortable, Behavior is calm, cooperative. Pain: Complains of pain cf3 in top of head Pain currently is 10 out of 10 on a pain scale. Quality of pain is described as aching, Pain began 2 hours ago. Neuro: العلي Agitation-Sedation Scale (RASS): 0 - Alert and Calm Level of Consciousness is awake, alert, Oriented to person, place, time, situation, Mirror Maker are equal bilaterally Facial symmetry appears normal, Pupils are PERRLA. Cardiovascular: Reports chest pain. GI: Reports nausea. 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 - Infectious Disease History:: Denies. - Social history:: Smoking status: Patient denies any tobacco usage or history of. Screenin:30 [facility] ED Fall Risk Assessment (Adult) History of falling in the last 3 months, jl7 including since admission No falls in past 3 months (0 pts) Confusion or Disorientation No (0 pts) Intoxicated or Sedated No (0 pts) Impaired Gait No (0 pts) Mobility Assist Device Used No (0 pt) Altered Elimination No (0 pt) Score/Fall Risk Level 0 - 2 = Low Risk Oriented to surroundings, Maintained a safe environment. Abuse screen: Denies threats or abuse. Denies injuries from another. Nutritional screening: No deficits noted. Tuberculosis screening: No symptoms or risk factors identified. Assessment: 15:15 General: Appears in no apparent distress. uncomfortable, Behavior is calm, cooperative, jl7 appropriate for age. Pain: Complains of pain in headache \T\ CP Pain currently is 10 out of 10 on a pain scale. Neuro: العلي Agitation-Sedation Scale (RASS): 0 - Alert and Calm Level of Consciousness is awake, alert, obeys commands, Oriented to person, place, time, situation, Speech is normal, Facial symmetry appears normal. Cardiovascular: Patient's skin is warm and dry. Respiratory: Airway is patent Respiratory effort is even, unlabored, Respiratory pattern is regular, symmetrical. GI: Abdomen is non-distended, Reports nausea. : Lacey in place Urine is clear. Derm: Skin is pink, warm \T\ dry. 16:15 Reassessment: Patient appears in no apparent distress at this time. Patient and/or jl7 family updated on plan of care and expected duration. Pain level reassessed. Patient is alert, oriented x 3, equal unlabored respirations, skin warm/dry/pink. pain rated 4/10 at this time. Patient states feeling better. 17:20 Reassessment: Awaiting transportation. jl7 Vital Signs: 15:21 BP 155 / 94; Pulse 84; Resp 16; Temp 97.7(O); Pulse Ox 99% ; Weight 79.5 kg; Height 5 cf3 ft. 3 in. ; 15:30 BP 155 / 94; Pulse 81; Resp 15; Pulse Ox 100% ; jl7 16:15 Pain 4/10; jl7 17:45 BP 148 / 89; Pulse 80; Resp 15; Temp 97; Pulse Ox 100% ; jl7 15:21 Body Mass Index 31.05 (79.50 kg, 160.02 cm) cf3 16:15 Pain Scale: Adult jl7 ED Course: 15:14 Patient arrived in ED. jl7 15:16 Torsten Contreras MD is Attending Physician. sp3 15:21 Medhat Saleh, RN is Primary Nurse. cf3 15:23 Triage completed. cf3 15:24 Arm band placed on right wrist. cf3 15:30 Patient has correct armband on for positive identification. Bed in low position. Call jl7 light in reach. Side rails up X2. Provided Education on: use of call bunn. Client placed on continuous cardiac and pulse oximetry monitoring. NIBP monitoring applied. threat monitoring analyst on. Pulse ox on. Warm blanket given. 15:34 Initial lab(s) drawn, by me, sent to lab. EKG done, by ED staff, reviewed by Torsten Contreras MD. Inserted saline lock: 22 gauge in right forearm, using aseptic technique. Blood collected. Flushed with 10 mL NS. 15:54 Inserted saline lock: 22 gauge in left forearm, using aseptic technique. Blood jl7 collected. Flushed with 10 mL NS. 16:06 XRAY Chest (1 view) In Process Unspecified. EDMS 16:47 Notified ED physician of other ventricular trigeminy for 15 seconds on ECG monitor. Per cf3 , patient still stable for discharge. 18:11 No provider procedures requiring assistance completed. IV discontinued, intact, ap3 bleeding controlled, No redness/swelling at site. Pressure dressing applied. Administered Medications: 15:53 Drug: morphine IVP or IV 4 mg IVP once over 4 mins Route: IVP; Infused Over: 4 mins; jl7 Site: left forearm; 16:15 Follow up: Pain 4/10 Adult; Response: No adverse reaction; Pain is decreased; RASS: jl7 Alert and Calm (0) 15:53 Drug: Ondansetron IVP 4 mg IVP once; over 2 minutes Route: IVP; Site: left forearm; jl7 16:15 Follow up: Response: No adverse reaction; Nausea is decreased jl7 Medication: 15:30 VIS not applicable for this client. jl7 Outcome: 16:43 Discharge ordered by . sp3 18:11 Discharged to half-way. ap3 18:11 Condition: good 18:11 Discharge instructions given to patient, 18:11 Patient left the ED. ap3 Signatures: Dispatcher [employer] Roge Alonzo RN RN jl7 Jessy Hernandez RN RN ap3 Torsten Contreras MD MD sp3 Medhat Saleh RN RN cf3
[2025-03-17 18:30] VITALS: BP 155/94; TEMP 97.7
[2025-03-17 18:32] VITALS: O2SAT 100
== END 2025-03-17 18:11 | disposition home or self-care (01) ==
LOC: ER 15:08
DX: R07.9 Chest pain, unspecified (principal); R42 Dizziness and giddiness; R11.0 Nausea; I25.2 Old myocardial infarction; Z86.73 Personal history of transient ischemic attack (TIA), and cerebral infarction without residual deficits
CPT/HCPCS: 93005; 85025; 81001; 80048; 36415; 83735; 85610; 80076; 83605; 84484; 83690; 83880; 71045; 96375; 96374; 99285; J2405